=== PATIENT | female | born 1995 ===

== ENCOUNTER 2017-10-31 15:57 | Emergency (ER) | payer MEDICAID ==
[2017-10-31 16:07] VITALS: BMI 25.4
[2017-10-31 16:10] VITALS: RESP 18
--- NOTE | 2017-10-31 17:10 | C.PDOC ---
History Of Present Illness 22 y/o female, approximately 11 weeks , presents to the ED complaining of intermittent sharp left lower abdominal pain since yesterday. Pain is localized to the LLQ. Patient states she is visiting here from [place]. She denies any vaginal bleeding, discharge, fever, chills, UTI symptoms, back pain, nausea, or vomiting. pt has had sono with iup a few weeks ago. Time Seen by Provider: 10/31/17 16:37 Chief Complaint (Nursing): Abdominal Pain History Per: Patient History/Exam Limitations: no limitations Onset/Duration Of Symptoms: Days Current Symptoms Are (Timing): Still Present Location Of Pain/Discomfort: LLQ Quality Of Discomfort: Sharp Associated Symptoms: denies: Nausea, Vomiting, Diarrhea, Urinary Symptoms Abnormal Vaginal Bleeding: No : 1 Para: 0 Miscarriage: 0 Past Medical History Reviewed: Historical Data, Nursing Documentation, Vital Signs Vital Signs: Last Vital Signs Temp 98.4 F 10/31/17 18:26 Pulse 78 10/31/17 18:26 Resp 18 10/31/17 18:26 BP 125/83 10/31/17 18:26 Pulse Ox 98 11/01/17 21:11 Surgical History: No Surg Hx Family History: States: No Known Family Hx - Social History Hx Tobacco Use: No Hx Alcohol Use: No Hx Substance Use: No Review Of Systems Constitutional: Negative for: Fever, Chills Eyes: Negative for: Vision Change Cardiovascular: Negative for: Chest Pain Respiratory: Negative for: Shortness of Breath Gastrointestinal: Positive for: Abdominal Pain. Negative for: Nausea, Vomiting , Diarrhea Genitourinary: Negative for: Dysuria, Frequency, Incontinence, Vaginal Discharge , Vaginal Bleeding Neurological: Negative for: Weakness, Headache Physical Exam - Physical Exam Appears: Non-toxic, No Acute Distress Skin: Normal Color, Warm, Dry Head: Atraumatic, Normacephalic Eye(s): bilateral: Normal Inspection, PERRL, EOMI Neck: Supple Chest: Symmetrical Cardiovascular: Rhythm Regular, No Murmur Respiratory: Normal Breath Sounds, No Rhonchi, No Wheezing Gastrointestinal/Abdominal: Bowel Sounds, Soft, No Tenderness, No Guarding, Other (Mildly gravid abdomen) Back: No CVA Tenderness Extremity: Bilateral: Atraumatic, Normal Color And Temperature Neurological/Psych: Oriented x3, Normal Speech Gait: Steady ED Course And Treatment - Laboratory Results Result Diagrams: 10/31/17 17:13 10/31/17 17:13 O2 Sat by Pulse Oximetry: 98 (RA) Pulse Ox Interpretation: Normal - CT Scan/US US Other Rad Studies (CT/US): Read By Radiologist, Radiology Report Reviewed CT/US Interpretation: Accession No. : [id number]. Patient Name / ID : ROBERT CABALLERO / [id number]. Exam Date : 10/31/2017 17:41:31 ( Approved ). Study Comment : Sex / Age : F / 22Y. Creator : Harris Mccray MD. Dictator : Harris Mccray MD. Piece Hand : Finisher Polisher : Harris Mccray MD. Approver2 : Report Date : 10/31/2017 18:40:20. My Comment : . Date of service: 10/31/2017. PROCEDURE: OB Pelvic Ultrasound. HISTORY: llq pain., 11 . LMP: Reportedly 07/22/2017 suggesting an intrauterine gestation of 14 weeks 3 days. COMPARISON: Transabdominal pelvic ultrasound was performed with longitudinal and transverse projections submitted for interpretation. FINDINGS: UTERUS: Gestational sac: A single viable intrauterine gestation is identified within a gestational sac. No yolk sac or amniotic membrane is appreciable at this time. Heart rate: 154 bpm. age (Ultrasound estimated): 12 weeks 2 days by mean crown-rump length. Mean crown-rump length measures 5.78 cm. Viola-gestational hemorrhage: A small subchorionic hemorrhage may be chronic at the inferior decidual reaction at the lower uterine segment. A small hypoechoic area measures approximately 3.5 x 1.3 x 1.2 cm. Date of delivery (Ultrasound estimated) : 05/14/2018. Uterus measures 15.4 x 8.4 x 11.3 cm. Normal in size and appearance, anteverted. No prominent myometrial pathology grossly evident. No definitive cervical pathology identified. CERVIX: Measures 4.3 cm. Long and closed. No cervical abnormality seen. RIGHT OVARY: Measures 2.1 x 1.6 x 3.1 cm. No mass lesion. Normal flow. LEFT OVARY: Left ovary not identified. No suspicious left adnexal findings otherwise. FREE FLUID: None. OTHER FINDINGS: None. IMPRESSION: Single viable intrauterine gestation is identified with average ultrasonic age of 12 weeks 2 days and cardiac activity of 154 beats. A small potentially chronic subchorionic hemorrhage is appreciated at the inferior decidual reaction with a developing anterior fundal placenta identified. Medical Decision Making Medical Decision Making: Initial Impression: Abdominal pain during Will consider ectopic vs. threatened miscarriage Plan: --CMP --Beta-HCG --CBC --Urinalysis --Tylenol 650 mg PO --OB ultrasound On reevaluation patient reports pain improved after medication given. Labs reviewed and discussed with patient. 1848 us shows iup with +fhr, small subchorionic hemmorrhage. d/c home. Disposition Counseled Patient/Family Regarding: Studies Performed, Diagnosis, Need For Followup - Disposition Disposition: HOME/ ROUTINE Disposition Time: 18:50 Condition: GOOD Additional Instructions: Please avoid heavy lifting; take it easy. Pelvic rest-- nothing in vagina. Follow up with your biologics specialist doctor as soon as possible. Return to ER for any worsening pain., heavy vaginal bleeding or any other concerns. Stay well hydrated. Instructions: Threatened Miscarriage (DC) Forms: [employer] ([place]), General Discharge Instructions - Clinical Impression Clinical Impression: Threatened - PA / REWINDER / Resident Statement MD/DO has reviewed & agrees with the documentation as recorded. - Scribe Statement The provider has reviewed the documentation as recorded by the Scribe (Genny Daniels) All medical record entries made by the Scribe were at my direction and personally dictated by me. I have reviewed the chart and agree that the record accurately reflects my personal performance of the history, physical exam, medical decision making, and the department course for this patient. I have also personally directed, reviewed, and agree with the discharge instructions and disposition.
[2017-10-31 17:20] LABS: BASO # 0.1 K/uL (0.0-0.2); BASO % 0.4 % (0.0-2.0); EOS # 0.2 K/uL (0.0-0.7); EOS % 1.3 % (0.0-4.0); HEMOGLOBIN 13.2 g/dL (11.0-16.0); LYMPH # 2.3 K/uL (1.0-4.3); LYMPH % 17.4 % (20.0-40.0); MEAN CELL VOLUME 86.9 fL (81.0-99.0); MEAN CORPUSCULAR HEMOGLOBIN 29.5 pg (27.0-31.0); MEAN CORPUSCULAR HGB CONC 33.9 g/dL (33.0-37.0); MEAN PLATELET VOLUME 8.9 fL (7.2-11.7); MONO # 1.5 K/uL (0.0-0.8); MONO % 11.2 % (0.0-10.0); NEUT # 9.4 K/uL (1.8-7.0); NEUT % 69.7 % (50.0-75.0); RBC 4.48 Mil/uL (3.80-5.20); RED CELL DISTRIBUTION WIDTH 14.4 % (11.5-14.5); WHITE BLOOD COUNT 13.4 K/uL (4.8-10.8)
[2017-10-31 17:29] LABS: SQUAMOUS EPITHIAL 12 /hpf (0-5); URINE BACTERIA OCC (<OCC); URINE BILIRUBIN NEGATIVE (NEGATIVE); URINE BLOOD NEGATIVE (NEGATIVE); URINE CLARITY Hazy (Clear); URINE COLOR Yellow (YELLOW); URINE GLUCOSE (UA) NORMAL (Normal); URINE LEUKOCYTE ESTERASE NEG Leu/uL (Negative); URINE PROTEIN NEGATIVE (NEGATIVE); URINE UROBILINOGEN NORMAL mg/dL (0.2-1.0)
[2017-10-31 17:32] LABS: ALB/GLOB RATIO 1.4 (1.0-2.1); ALBUMIN 4.3 g/dL (3.5-5.0); ALT/SGPT 23 U/L (9-52); AST/SGOT 19 U/L (14-36); BLOOD UREA NITROGEN 5 mg/dL (7-17); CALCIUM 9.4 mg/dl (8.6-10.4); GFR NON-AFRICAN AMERICAN > 60
[2017-10-31 18:26] VITALS: BP 125/83; PULSE 78; TEMP 98.4
--- NOTE | 2017-10-31 18:41 | US ---
Date of service: 10/31/2017 PROCEDURE: OB Pelvic Ultrasound HISTORY: llq pain., 11 LMP: Reportedly 07/22/2017 suggesting an intrauterine gestation of 14 weeks 3 days. COMPARISON: Transabdominal pelvic ultrasound was performed with longitudinal and transverse projections submitted for interpretation. FINDINGS: UTERUS: Gestational sac: A single viable intrauterine gestation is identified within a gestational sac. No yolk sac or amniotic membrane is appreciable at this time. Heart rate: 154 bpm. age (Ultrasound estimated): 12 weeks 2 days by mean crown-rump length. Mean crown-rump length measures 5.78 cm. Viola-gestational hemorrhage: A small subchorionic hemorrhage may be chronic at the inferior decidual reaction at the lower uterine segment. A small hypoechoic area measures approximately 3.5 x 1.3 x 1.2 cm Date of delivery (Ultrasound estimated) : 05/14/2018. Uterus measures 15.4 x 8.4 x 11.3 cm. Normal in size and appearance, anteverted. No prominent myometrial pathology grossly evident. No definitive cervical pathology identified. CERVIX: Measures 4.3 cm. Long and closed. No cervical abnormality seen. RIGHT OVARY: Measures 2.1 x 1.6 x 3.1 cm. No mass lesion. Normal flow. LEFT OVARY: Left ovary not identified. No suspicious left adnexal findings otherwise. FREE FLUID: None. OTHER FINDINGS: None. IMPRESSION: Single viable intrauterine gestation is identified with average ultrasonic age of 12 weeks 2 days and cardiac activity of 154 beats. A small potentially chronic subchorionic hemorrhage is appreciated at the inferior decidual reaction with a developing anterior fundal placenta identified.
[2017-10-31 18:51] VITALS: O2SAT 98
== END 2017-10-31 19:07 | disposition home or self-care (01) ==
LOC: C.ER 15:57
DX: O20.0 Threatened abortion (principal); Z3A.11 11 weeks gestation of pregnancy